=== PATIENT | male | born 1985 | race Caucasian/White ===

== ENCOUNTER 2017-09-07 03:41 | Emergency (ER) | payer MEDICAID ==
[~2017-09-07 03:41] MED LIST: MAG PO
[2017-09-07 04:56] LABS: BASOPHIL % 0.3 % (0-2); PLATELET COUNT 222 x10^3mcL (130-400); RED CELL DISTRIBUTION WIDTH 13.7 % (11.5-14.5)
[2017-09-07 05:08] LABS: CALCIUM 8.2 mg/dL (8.5-10.1); CARBON DIOXIDE 27.9 mmol/L (21-32); CHLORIDE SERUM 108 mmol/L (98-107); CREATININE SERUM 1.3 mg/dL (0.7-1.3); GFR1 > 60 mL/min; GLUCOSE SERUM 113 mg/dL (74-106); POTASSIUM SERUM 3.4 mmol/L (3.5-5.1); SODIUM SERUM 142 mmol/L (136-145)
[2017-09-07 05:12] LABS: ALKALINE PHOSPHATASE 74 U/L (46-116); ALT/SGPT 49 U/L (16-63); AST/SGOT 26 U/L (15-37); BILIRUBIN TOTAL 0.3 mg/dL (0.20-1.00); TOTAL PROTEIN, SERUM 6.8 g/dL (6.4-8.2)
[2017-09-07 05:13] LABS: ALBUMIN 3.1 g/dL (3.4-5.0)
[2017-09-07 05:42] VITALS: BP 139/91
== END 2017-09-07 05:42 | disposition home or self-care (01) ==
LOC: ED 03:41
PROVIDERS: Emergency Medicine
DX: R07.89 Other chest pain (principal)
CPT/HCPCS: 36415; 83880; J1885; Q0092

== ENCOUNTER 2017-10-12 18:31 | Emergency (ER) | payer MEDICAID ==
[~2017-10-12] VITALS: Ht 177.8 cm; Wt 102.0 kg
[2017-10-12 19:28] LABS: BASOPHIL % 0.3 % (0-2); PLATELET COUNT 244 x10^3mcL (130-400); RED CELL DISTRIBUTION WIDTH 13.1 % (11.5-14.5)
[2017-10-12 19:36] LABS: CALCIUM 8.8 mg/dL (8.5-10.1); CARBON DIOXIDE 29.2 mmol/L (21-32); CHLORIDE SERUM 107 mmol/L (98-107); CREATININE SERUM 1.3 mg/dL (0.7-1.3); GFR1 > 60 mL/min; GLUCOSE SERUM 79 mg/dL (74-106); POTASSIUM SERUM 3.5 mmol/L (3.5-5.1); SODIUM SERUM 143 mmol/L (136-145)
[2017-10-12 19:40] LABS: ALBUMIN 3.5 g/dL (3.4-5.0); ALKALINE PHOSPHATASE 76 U/L (46-116); ALT/SGPT 48 U/L (16-63); AST/SGOT 22 U/L (15-37); BILIRUBIN TOTAL 0.8 mg/dL (0.20-1.00); LIPASE 174 IU/L (73-393); TOTAL PROTEIN, SERUM 7.4 g/dL (6.4-8.2)
[2017-10-12 21:48] VITALS: BP 120/74
== END 2017-10-12 21:48 | disposition home or self-care (01) ==
LOC: ED 18:31
PROVIDERS: Emergency Medicine
DX: K92.1 Melena (principal)
CPT/HCPCS: J1170; Q0092; Q0162

== ENCOUNTER 2019-05-17 02:47 | Emergency (ER) | payer MEDICAID ==
[~2019-05-17] VITALS: Ht 177.8 cm; Wt 104.3 kg
[2019-05-17 02:54] VITALS: Ht 177.8 cm; Wt 104.3 kg
[2019-05-17 03:56] LABS: BASOPHIL % 0.6 % (0-2); PLATELET COUNT 216 x10^3mcL (130-400); RED CELL DISTRIBUTION WIDTH 12.2 % (11.5-14.5)
[2019-05-17 03:58] LABS: microscopic required? YES; urine erythrocyte 2+ (NEGATIVE)
[2019-05-17 03:59] LABS: CALCIUM 9.5 mg/dL (8.5-10.1); CARBON DIOXIDE 26.4 mmol/L (21-32); CHLORIDE SERUM 105 mmol/L (98-107); CREATININE SERUM 1.2 mg/dL (0.7-1.3); GFR1 > 60 mL/min; GLUCOSE SERUM 93 mg/dL (74-106); POTASSIUM SERUM 3.6 mmol/L (3.5-5.1); SODIUM SERUM 143 mmol/L (136-145)
[2019-05-17 04:04] LABS: ALBUMIN 3.7 g/dL (3.4-5.0); ALKALINE PHOSPHATASE 73 U/L (46-116); ALT/SGPT 40 U/L (16-63); AST/SGOT 19 U/L (15-37); BILIRUBIN TOTAL 0.55 mg/dL (0.20-1.00); TOTAL PROTEIN, SERUM 7.2 g/dL (6.4-8.2)
[2019-05-17 06:27] VITALS: BP 119/80
== END 2019-05-17 06:27 | disposition home or self-care (01) ==
LOC: ED 02:47
PROVIDERS: Emergency Medicine
DX: N34.2 Other urethritis (principal); R31.9 Hematuria, unspecified; R80.9 Proteinuria, unspecified; Z87.442 Personal history of urinary calculi
CPT/HCPCS: 36415; 87491; 87591; J0696; J1885; Q0092

== ENCOUNTER 2019-09-08 21:36 | Emergency (ER) | payer SELFPAY ==
[~2019-09-08] VITALS: Ht 180.3 cm; Wt 106.1 kg
[2019-09-08 21:48] VITALS: BP 133/83
== END 2019-09-09 01:33 | disposition left against medical advice (07) ==
LOC: ED 21:36
DX: Z53.21 Procedure and treatment not carried out due to patient leaving prior to being seen by health care provider (principal)

== ENCOUNTER 2019-12-13 23:39 | Emergency (ER) | payer OTHER ==
[~2019-12-13] VITALS: Ht 180.3 cm; Wt 106.6 kg
[2019-12-13 23:48] VITALS: Ht 180.3 cm; Wt 106.6 kg
[2019-12-14 00:08] LABS: BASOPHIL % 0.5 % (0-2); PLATELET COUNT 235 x10^3mcL (130-400); RED CELL DISTRIBUTION WIDTH 13.7 % (11.5-14.5)
[2019-12-14 00:18] LABS: CALCIUM 8.4 mg/dL (8.5-10.1); CARBON DIOXIDE 28.2 mmol/L (21-32); CHLORIDE SERUM 104 mmol/L (98-107); CREATININE SERUM 1.3 mg/dL (0.7-1.3); GFR1 > 60 mL/min; GLUCOSE SERUM 90 mg/dL (74-106); POTASSIUM SERUM 3.5 mmol/L (3.5-5.1); SODIUM SERUM 140 mmol/L (136-145)
[2019-12-14 00:24] LABS: ALBUMIN 3.5 g/dL (3.4-5.0); ALKALINE PHOSPHATASE 80 U/L (46-116); ALT/SGPT 55 U/L (16-63); AST/SGOT 21 U/L (15-37); BILIRUBIN TOTAL 0.3 mg/dL (0.20-1.00); CHOLESTEROL 145 mg/dL (<200); CHOLESTEROL/HDL RATIO 3.9; HDL CHOLESTEROL 37 mg/dL (40-60); LIPASE 210 IU/L (73-393); TOTAL PROTEIN, SERUM 6.9 g/dL (6.4-8.2); TRIGLYCERIDES 172 mg/dL (<150)
[2019-12-14 00:30] LABS: T3 TOTAL 1.2 ng/mL
[2019-12-14 00:39] LABS: UA SPECIFIC GRAVITY 1.025 (1.005-1.035); microscopic required? YES; urine erythrocyte 1+ (NEGATIVE)
[2019-12-14 00:39] LABS: FREE T4 1.02 ng/dL (0.76-1.46); FREE THYROXINE INDEX 2.6 ug/dL (1.4-4.5); T4(THYROXINE) 7.5 ug/dL (4.7-13.3)
[2019-12-14 00:52] LABS: AMPHETAMINE QUAL UR NONE DETECTED (See below)
[2019-12-14 01:23] VITALS: BP 133/81
== END 2019-12-14 01:23 | disposition home or self-care (01) ==
LOC: ED 23:39
PROVIDERS: Specialist
DX: K21.9 Gastro-esophageal reflux disease without esophagitis (principal); R07.89 Other chest pain; K44.9 Diaphragmatic hernia without obstruction or gangrene; Z87.442 Personal history of urinary calculi
CPT/HCPCS: 36415; 83880; 84439; Q0092

== ENCOUNTER 2020-07-29 23:05 | Emergency (ER) | payer OTHER, SELFPAY ==
[~2020-07-29] VITALS: Ht 177.8 cm; Wt 97.5 kg
[2020-07-29 23:07] VITALS: BP 141/95; Ht 177.8 cm; Wt 97.5 kg
== END 2020-07-30 00:11 | disposition home or self-care (01) ==
LOC: ED 23:05
DX: U07.1 COVID-19 (principal)
CPT/HCPCS: U0003-CS